=== PATIENT | male | born 1980 | race Caucasian/White ===

== ENCOUNTER 2021-12-22 11:05 | Emergency (ER) | payer SELFPAY ==
[2021-12-22] MEDS ORDERED: Ibuprofen 600 MG Tab PO ONE (12:20)
== END 2021-12-22 13:09 | disposition home or self-care (01) ==
LOC: MW.ED 11:05
DX: S90.32XA Contusion of left foot, initial encounter (principal); Z88.0 Allergy status to penicillin; Z88.1 Allergy status to other antibiotic agents; Z72.0 Tobacco use; W20.8XXA Other cause of strike by thrown, projected or falling object, initial encounter
CPT/HCPCS: 73630; 99283; A9270